=== PATIENT | female | born 1990 | race African-American/Black ===

== ENCOUNTER → 2019-04-26 | Emergency (ER) | payer SELFPAY ==
[~2019-04-26] VITALS: Ht 172.7 cm; Wt 59.0 kg
[~2019-04-26] MED LIST: ACETAMINOPHEN325 M1 ORAL; DEBROX15 M1 BOTH EARS; IBUPROFEN600 MG ORAL; LIDODERM700 M1 TOPIC; POTASSIUM CHLO20 ME1 ORAL
--- NOTE | 2019-04-26 20:34 | NUR ---
pt called; not in waiting room.
[2019-04-26 20:45] VITALS: BP 121/85
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
--- NOTE | 2019-04-26 20:54 | NUR ---
Note ramon in EDM - 04/26/19 at 2054 by DAWSON ED Nurse Note: left for CT
--- NOTE | 2019-04-26 20:55 | Emergency Room Report ---
History of Present Illness General Chief Complaint: Pain Source: Patient Present Illness HPI Disclaimer: Please note that this report is being documented using [employer] technology. This can lead to erroneous entry secondary to incorrect interpretation by the dictating instrument. HPI: 28-year-old [id number] female presents for evaluation of left wrist pain. Patient fell down the stairs catching herself against the railing with the left hand and which she describes as significant weightbearing on the left wrist during this fall. She felt a pop in the left wrist and today is unable to flex or extend the wrist. Denies swelling. Notes circumferential pain. Denies numbness or tingling. No injury to the hand, elbow, forearm, shoulder. There is no head injury or loss of conscious. She did fall onto her left side and complains of some pain over the ribs but denies any shortness of breath. There is some pain with bending and twisting at the torso. Does not take blood thinners. Has not tried any medications. PMH: Denies PSH: Jaw surgery, foot surgery unspecified Allergies: None Social Hx: Social alcohol use, THC use, denies tobacco use or IV drugs Allergies: Coded Allergies: NICKEL (Verified Allergy, Unknown, 04/26/19) break out Patient History Last Menstrual Period: 03/2019 Now: No : 0 Para: 0 Nursing Documentation-PMH Past Medical History: No Stated History Review of Systems All Other Systems: negative except mentioned in HPI Physical Exam Vital Signs Date Time Temp Pulse Resp B/P (MAP) Pulse Ox O2 Delivery O2 Flow Rate FiO2 04/26/19 20:37 98.1 78 16 121/85 (97) 97 04/26/19 20:45 Room Air General: Awake and alert, no acute distress HEENT: NC/AT. EOMI. the left external auditory canal is completely obstructed by cerumen impaction. The right has cerumen in the external canal however the tympanic membrane is somewhat visible and is pearly samaniego, nonbulging. Cannot evaluate for effusion. Chest Wall: No crepitus, no deformity, mild tenderness over the mid axillary line and the mid scapular line on the left side Cardiovascular: Regular rate and rhythm, S1-S2 normal, no murmurs Resp: Normal work of breathing. Breath sounds are equal bilaterally. No crackles, no cough Skin: Intact. No abrasions, laceration or rash over the exposed skin MSK: Normal tone and bulk. Moving all extremities. No obvious deformity. Tenderness over the dorsal and volar aspect of the wrist without significant deformity, no edema, no bruising, no abrasions. There is no tenderness in the anatomic snuffbox. Able to flex and extend all digits. Limitation to range of motion on flexion extension due to pain. There is no tenderness, deformity, limitation of range of motion at the elbow or shoulder Neuro: Awake and alert. Mentating appropriately. Sensation intact over the upper extremities bilaterally. Medical Decision Making Diagnostic Impression: Primary Impression: Wrist sprain Additional Impressions: Lightheaded Back pain Contusion of rib on left side Hypokalemia ER Course 28-year-old female presents for evaluation of wrist pain after a fall yesterday. She caught herself on her landing and may have the wrist or may have an occult fracture. There is no swelling but she is tender and has limitation in range of motion. Will obtain x-rays of the wrist. There is no tenderness in the anatomic snuffbox. Chest wall is non-tender though there is muscular tenderness over the mid axillary and mid scapular line most consistent with contusion and spasm. We will treat with ibuprofen. Laboratory Tests Test 04/26/19 21:11 04/26/19 22:09 Urine HCG, Qualitative Negative (NEGATIVE) White Blood Count 6.7 K/UL (4.8-10.8) Red Blood Count 3.90 M/UL (4.20-5.40) L Hemoglobin 11.3 G/DL (12.0-16.0) L Hematocrit 34.2 % (37.0-47.0) L Mean Corpuscular Volume 88 FL (80-99) Mean Corpuscular Hemoglobin 29.0 PG (27.0-31.0) Mean Corpuscular Hemoglobin Concent 33.2 G/DL (32.0-36.0) Red Cell Distribution Width 12.3 % (11.6-14.8) Platelet Count 302 K/UL (150-450) Mean Platelet Volume 6.7 FL (6.5-10.1) Neutrophils (%) (Auto) 40.8 % (45.0-75.0) L Lymphocytes (%) (Auto) 50.2 % (20.0-45.0) H Monocytes (%) (Auto) 6.5 % (1.0-10.0) Eosinophils (%) (Auto) 0.6 % (0.0-3.0) Basophils (%) (Auto) 2.0 % (0.0-2.0) Sodium Level 141 MMOL/L (136-145) Potassium Level 3.1 MMOL/L (3.5-5.1) L Chloride Level 105 MMOL/L (98-107) Carbon Dioxide Level 27 MMOL/L (21-32) Anion Gap 10 mmol/L (5-15) Blood Urea Nitrogen 13 mg/dL (7-18) Creatinine 0.8 MG/DL (0.55-1.30) Estimate Glomerular Filtration Rate > 60 mL/min (>60) Glucose Level 106 MG/DL (74-106) Calcium Level 8.8 MG/DL (8.5-10.1) Total Bilirubin 0.4 MG/DL (0.2-1.0) Aspartate Amino Transferase (AST) 12 U/L (15-37) L Alanine Aminotransferase (ALT) 14 U/L (12-78) Alkaline Phosphatase 58 U/L (46-116) Troponin I 0.000 ng/mL (0.000-0.056) Total Protein 7.0 G/DL (6.4-8.2) Albumin 3.2 G/DL (3.4-5.0) L Globulin 3.8 g/dL Albumin/Globulin Ratio 0.8 (1.0-2.7) L EKG Diagnostic Results EKG Time: 22:20 Rate: normal Rhythm: NSR ST Segments: no acute changes Other Impression Sinus rhythm, normal axis, normal intervals, no ST segment changes. Rhythm Strip Diag. Results Rhythm Strip Time: 22:20 EP Interpretation: yes Rate: 60s Rhythm: NSR, no PVC's, no ectopy Chest X-Ray Diagnostic Results Chest X-Ray Diagnostic Results : Chest X-Ray Ordered: Yes # of Views/Limited/Complete: Complete Indication: Chest Pain EP Interpretation: Yes Interpretation: no consolidation, no pneumothorax, no acute cardiopulmonary disease Impression: No acute disease Electronically Signed by: Electronically signed by Dr. Low Toro Other X-Ray Diagnostic Results Other X-Ray Diagnostic Results : X-Ray ordered: Left wrist # of Views/Limited Vs Complete: Complete Indication: Pain EP Interpretation: Yes Interpretation: no dislocation, no soft tissue swelling, no fractures Impression: No acute disease Electronically Signed by: Electronically signed by Dr. Low Toro Reevaluation Time: 22:03 Last Vital Signs Date Time Temp Pulse Resp B/P (MAP) Pulse Ox O2 Delivery O2 Flow Rate FiO2 04/26/19 20:45 98.1 70 16 121/85 97 Room Air Reevaluation Impression Chest x-ray, rib series and x-ray of the left wrist show no evidence of acute fracture, dislocation or other pathology. There is no pneumothorax, normal cardiac silhouette. The patient was put in a volar splint and medications were prescribed for pain, swelling and discomfort. During the discharge process the patient states that she has been having intermittent episodes of lightheadedness and dizziness. She did notice some tinnitus and some vertiginous symptoms over the past few days though less of a spinning and more of a lightheadedness on further questioning. She states that symptoms are worse when rising from a seated position. There is been no chest pain, reports some shortness of breath when rising too fast but denies any loss of consciousness, head injury. Will send for EKG, labs and orthostatics. Will give IV fluids. She is not currently symptomatic but does not have a PMD to follow-up with. 1105: Labs have returned within normal limits. Troponin negative. Slight hypokalemia which we will replete orally. Patient is feeling well after receiving IV fluids. She can follow-up as an outpatient for lightheadedness. We discussed reasons to return to the emergency department. She understands and agrees with the treatment plan was discharged home. Disposition: HOME, SELF-CARE Condition: Improved Scripts Carbamide Peroxide (DEBROX) 15 Ml Drops 5 DROP BOTH EARS TWICE A DAY for 4 Days, ML 0 Refills Prov: Low Toro MD 04/26/19 Potassium Chloride* (K-DUR*) 20 Meq Tab.er.prt 20 MEQ ORAL TWICE A DAY for 3 Days, #6 TAB 0 Refills Prov: Low Toro MD 04/26/19 Lidocaine Patch* (Lidoderm Patch*) 1 Each Adh..patch 1 PATCH TOPIC DAILY, #7 PATCH 0 Refills Patch(es) may remain in place for up to 12 hours in any 24-hour period. Prov: Low Toro MD 04/26/19 Acetaminophen* (ACETAMINOPHEN 325MG TABLET*) 325 Mg Tablet 650 MG ORAL Q6H PRN for For Pain for 5 Days, #30 TAB Prov: Low Toro MD 04/26/19 Ibuprofen* (MOTRIN*) 600 Mg Tablet 600 MG ORAL Q8H PRN for For Pain, #30 TAB 0 Refills Prov: Low Toro MD 04/26/19 Low Toro MD Apr 26, 2019 20:55
--- NOTE | 2019-04-26 21:03 | NUR ---
ED Nurse Note: Xray at bedside.
[2019-04-26 22:41] LABS: EOSINOPHILS % (AUTO) 0.6 % (0.0-3.0); HEMATOCRIT 34.2 % (37.0-47.0); HEMOGLOBIN 11.3 G/DL (12.0-16.0); LYMPHOCYTES % (AUTO) 50.2 % (20.0-45.0); MEAN CORPUSCULAR VOLUME 88 FL (80-99); MONOCYTES % (AUTO) 6.5 % (1.0-10.0); NEUTROPHILS % (AUTO) 40.8 % (45.0-75.0); PLATELET COUNT 302 K/UL (150-450); RED CELL DISTRIBUTION WIDTH 12.3 % (11.6-14.8); WHITE BLOOD COUNT 6.7 K/UL (4.8-10.8)
[2019-04-26 22:46] LABS: ANION GAP 10 mmol/L (5-15); BLOOD UREA NITROGEN 13 mg/dL (7-18); CALCIUM 8.8 MG/DL (8.5-10.1); CARBON DIOXIDE 27 MMOL/L (21-32); CHLORIDE 105 MMOL/L (98-107); CREATININE 0.8 MG/DL (0.55-1.30); POTASSIUM 3.1 MMOL/L (3.5-5.1); SODIUM 141 MMOL/L (136-145)
[2019-04-26 22:51] LABS: ALANINE AMINOTRANSFERASE 14 U/L (12-78); ALBUMIN 3.2 G/DL (3.4-5.0); ALBUMIN/GLOBULIN RATIO 0.8 (1.0-2.7); ALKALINE PHOSPHATASE 58 U/L (46-116); ASPARTATE AMINO TRANSFERASE 12 U/L (15-37); BILIRUBIN,TOTAL 0.4 MG/DL (0.2-1.0)
[2019-04-26 23:00] VITALS: BP 120/77
[2019-04-26 23:21] VITALS: BP 120/77
--- NOTE | 2019-04-26 23:21 | NUR ---
ED Nurse Note: Pt cleared by ERMD for discharge. DC instructions/prescription was given and explained to pt and verbalized understanding of teachings. All medical deviecs such as ID band and IV line removed. Pt is AAO x4, ambulatory and left with all personal belongings.
--- NOTE | 2019-04-27 14:47 | Diagnostic Imaging Report ---
Clinical Indication:Trauma, pain Technique: 3 views of the left wrist Comparison: None Findings: No acute fractures. No dislocations. The joint spaces are preserved Impression: Negative
--- NOTE | 2019-04-27 14:49 | Diagnostic Imaging Report ---
Indication: Pain, status post fall Technique: 2 views of the left ribs Comparison: none Findings: Nodular opacity projecting at left lung base presumably represents a nipple shadow. No fractures. No gross pneumothorax. Impression: Negative
--- NOTE | 2019-04-30 00:19 | Cardiology Report ---
APPROVED REPORT EKG Measurement Heart [id number] DC [id number] Normal sinus rhythm Normal ECG
== END | disposition home or self-care (01) ==
LOC: EMR 21:15
DX: S63.502A Unspecified sprain of left wrist, initial encounter (principal); M54.9 Dorsalgia, unspecified; R42 Dizziness and giddiness; S20.212A Contusion of left front wall of thorax, initial encounter; E87.6 Hypokalemia; Z91.048 Other nonmedicinal substance allergy status; F12.10 Cannabis abuse, uncomplicated; W10.9XXA Fall (on) (from) unspecified stairs and steps, initial encounter; Y92.9 Unspecified place or not applicable
CPT/HCPCS: 36415; 80053; 81025; 84484; 85025; 93005; 96360; 99284; J7030